=== PATIENT | female | born 1990 | race Caucasian/White ===

== ENCOUNTER 2017-02-09 06:36 | Emergency (ER) | payer BC, OTHER, SELFPAY ==
[2017-02-09 06:49] VITALS: BP 125/77
[2017-02-09] MEDS ORDERED: diphenhydrAMINE 50 MG/ML SDV IVPUSH ONE (07:20)
[2017-02-09] MEDS ORDERED: Metoclopramide 10 MG/2 ML SDV IVPUSH ONE (07:20)
--- NOTE | 2017-02-09 07:23 | EDM.PDOC ---
ED HPI GENERAL MEDICAL PROBLEM - General Chief Complaint: Headache Stated Complaint: HEADACHE Time Seen by Provider: 02/09/17 07:18 Source of Information: Reports: Patient History Limitations: Reports: No Limitations - History of Present Illness INITIAL COMMENTS - FREE TEXT/NARRATIVE: 26-year-old female presents to the ED with a right hemicranial headache particularly retro-orbital. She had a headache yesterday but it worsened overnight. Associated nausea without vomiting. She did eat and drink fairly well normally. Headaches are not real common for her. Headache is described as constant throbbing and pulsating in her right head. No recent head injuries. No signs of sinusitis or upper respiratory tract infection. Has not noticed any motor dysfunction Onset: Gradual Onset Date: 02/08/17 (had a headache most of yesterday but much worse this morning.) Duration: Hour(s): Location: Reports: Head Quality: Reports: Ache, Pressure Severity: Moderate (current pain is 7-8 out of 10.) Improves with: Reports: Rest Worsens with: Reports: Movement Context: Denies: Activity, Exercise, Lifting, Sick Contact, Trauma, Other Associated Symptoms: Reports: Nausea/Vomiting. 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: Neurological History: Reports: Migraines Social & Family History - Family History Family Medical History: Noncontributory - Tobacco Use Smoking Status *Q: Never Smoker - Caffeine Use Caffeine Use: Reports: None - Recreational Drug Use Recreational Drug Use: No - Living Situation & Occupation Living situation: Reports: Occupation: Employed ED ROS GENERAL - Review of Systems Review Of Systems: See Below Constitutional: Denies: Fever, Chills, Malaise, Weakness, Fatigue, Decreased Appetite, Weight Loss HEENT: Reports: No Symptoms, Eye Pain (right retro-orbital) Respiratory: Reports: No Symptoms ( pain pressure discomfort) Cardiovascular: Reports: No Symptoms Endocrine: Reports: No Symptoms GI/Abdominal: Reports: No Symptoms : Reports: No Symptoms Musculoskeletal: Reports: No Symptoms Skin: Reports: No Symptoms, Other Neurological: Reports: Headache. Denies: No Symptoms, Confusion, Dizziness, Numbness, Paresthesia, Pre-Existing Deficit, Seizure, Syncope, Tingling Psychiatric: Reports: No Symptoms, Other Immunologic: Reports: No Symptoms - Physical Exam Exam: See Below Exam Limited By: No Limitations General Appearance: Alert, WD/WN, No Apparent Distress Eye Exam: Bilateral Eye: Normal Inspection, PERRL Throat/Mouth: Normal Inspection, Normal Lips, Normal Oropharynx Head Exam: Atraumatic, Normocephalic Neck: Normal Inspection, Supple, Non-Tender, Full Range of Motion. No: Carotid Bruit Respiratory/Chest: No Respiratory Distress, Lungs Clear, Normal Breath Sounds, No Accessory Muscle Use Cardiovascular: Normal Peripheral Pulses, Regular Rate, Rhythm, No Edema, No Murmur GI/Abdominal: Normal Bowel Sounds, Soft, Non-Tender, No Organomegaly, No Distention Neuro Exam (Abbreviated): Alert, Oriented, CN II-XII Intact, Normal Cognition, Normal Reflexes, No Motor/Sensory Deficits Extremities: Normal Inspection, Normal Range of Motion, Non-Tender, No Pedal Edema, Normal Capillary Refill Psychiatric: Normal Affect, Normal Mood Skin Exam: Warm, Dry, Intact, Normal Color, No Rash Course - Vital Signs Last Recorded V/S: Last Vital Signs Temp 36.8 C 02/09/17 06:45 Pulse 91 02/09/17 06:45 Resp 18 02/09/17 06:45 BP 125/77 02/09/17 06:45 Pulse Ox 98 02/09/17 06:45 - Orders/Labs/Meds Orders: Active Orders 24 hr Category Date Time Status Dextrose 5%-0.9% NaCl [Dextrose 5%-Normal Saline] 1,000 Med 02/09/17 07:30 Active ml IV ASDIRECTED Ketorolac [Toradol] Med 02/09/17 07:30 Active 30 mg IVPUSH ONETIME Medication Orders Dextrose/Sodium Chloride (Dextrose 5%-Normal Saline) 1,000 mls @ 999 mls/hr IV ASDIRECTED RYAN Last Admin: 02/09/17 07:29 Dose: 999 mls/hr Ketorolac Tromethamine (Toradol) 30 mg IVPUSH ONETIME RYAN Last Admin: 02/09/17 07:30 Dose: 30 mg Meds: Medications Generic Name Dose Route Start Last Admin Trade Name Freq PRN Reason Stop Dose Admin Dextrose/Sodium Chloride 1,000 mls @ 999 mls/hr 02/09/17 07:30 02/09/17 07:29 Dextrose 5%-Normal Saline IV 999 mls/hr ASDIRECTED RYAN Administration Ketorolac Tromethamine 30 mg 02/09/17 07:30 02/09/17 07:30 Toradol IVPUSH 30 mg ONETIME RYAN Administration Discontinued Medications Generic Name Dose Route Start Last Admin Trade Name Freq PRN Reason Stop Dose Admin Diphenhydramine HCl 25 mg 02/09/17 07:20 02/09/17 07:30 Benadryl IVPUSH 02/09/17 07:21 25 mg ONETIME ONE Administration Metoclopramide HCl 7.5 mg 02/09/17 07:20 02/09/17 07:29 Reglan IVPUSH 02/09/17 07:21 7.5 mg ONETIME ONE Administration - Radiology Interpretation Free Text/Narrative:: 26-year-old female comes to the ED with a severe right hemicranial headache. She states when the worst headache she's experienced. No prone to headaches per se. Mild associated nausea without vomiting. Pain is pressure discomfort right hemicranial head and retro-orbital characteristic of migraine. No exam is otherwise completely normal. This includes rapid alternating movements and finger to nose assessments. Plan IV Toradol 30 mg IV with Benadryl 25 mg IV and Reglan 7.5 mg IV for headache relief. - Re-Assessments/Exams Free Text/Narrative Re-Assessment/Exam: 02/09/17 08:19patient reports she's feeling much improved. Headache is pretty well gone. She'll therefore be discharged to home to sleep for a couple of hours and then resume normal diet. Advised her to look for trigger factors in her diet over the last 12-24 hours and may have precipitated this severe headache. Departure - Departure Time of Disposition: 08:19 Disposition: Home, Self-Care 01 Condition: Fair Clinical Impression: Migraine - Discharge Information Referrals: PCP,None [Primary Care Provider] - Forms: ED Department Discharge Additional Instructions: evaluation the emergency room today in regards to development of a severe headache on the right hemicranial side of your head and behind her eye with associated nausea. This clinically as a migraine type headache. You're treated with intravenous fluids as well as Reglan Toradol and Benadryl to provide headache relief and nausea relief. Suggest home to sleep for a few hours and then resume normal diet. Look at dietary intake over the last 12-24 hours to see if he can identify a potential trigger for a bad headache as we discussed. Follow-up with personal physician if any further problems occur. - My Orders Last 24 Hours: My Active Orders 02/09/17 07:30 Dextrose 5%-0.9% NaCl [Dextrose 5%-Normal Saline] 1,000 ml IV ASDIRECTED Ketorolac [Toradol] 30 mg IVPUSH ONETIME - Assessment/Plan Last 24 Hours: My Active Orders 02/09/17 07:30 Dextrose 5%-0.9% NaCl [Dextrose 5%-Normal Saline] 1,000 ml IV ASDIRECTED Ketorolac [Toradol] 30 mg IVPUSH ONETIME
[2017-02-09] MEDS ORDERED: Dextrose 5%-0.9% NaCl 1,000 ML IV SCH (07:30)
[2017-02-09] MEDS ORDERED: Ketorolac 30 MG/ML SDV IVPUSH SCH (07:30)
== END 2017-02-09 09:00 | disposition home or self-care (01) ==
LOC: JD.ED 06:36
DX: G43.909 Migraine, unspecified, not intractable, without status migrainosus (principal); Z88.2 Allergy status to sulfonamides
CPT/HCPCS: 96361; 96374; 96375; 99284; J1200; J1885; J2765; J7042

== ENCOUNTER 2019-12-12 03:26 | Emergency (ER) | payer BC ==
[2019-12-12 03:39] VITALS: BP 139/82; PULSE 78
--- NOTE | 2019-12-12 04:39 | EDM.PDOC ---
ED HPI GENERAL MEDICAL PROBLEM - General Chief Complaint: Flank Pain Stated Complaint: SIDE PAIN Time Seen by Provider: 12/12/19 04:10 Source of Information: Reports: Patient History Limitations: Reports: No Limitations - History of Present Illness INITIAL COMMENTS - FREE TEXT/NARRATIVE: Is a 28-year-old female. Since yesterday she has been having pain in her right upper quadrant going into the right flank underneath her right ribs. She denies any cough denies any fever denies any straining. She has not been short of breath. She is a 4 para 3 aborta 0. She has had no urinary symptoms and no nausea vomiting or diarrhea. She denies any history of gallbladder problems. It seems like movement aggravates the pain more but it is always there and seems to be overly sharp since it started yesterday. She comes to the ER for evaluation. 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: Neurological History: Reports: Migraines Social & Family History - Family History Family Medical History: Noncontributory - Tobacco Use Smoking Status *Q: Never Smoker - Caffeine Use Caffeine Use: Reports: None - Recreational Drug Use Recreational Drug Use: No - Living Situation & Occupation Living situation: Reports: Occupation: Employed ED ROS GENERAL - Review of Systems Review Of Systems: See Below Constitutional: Denies: Fever, Chills HEENT: Reports: No Symptoms Respiratory: Denies: Shortness of Breath, Cough Cardiovascular: Reports: No Symptoms Endocrine: Reports: No Symptoms GI/Abdominal: Reports: Abdominal Pain. Denies: Diarrhea, Nausea, Vomiting : Reports: Flank Pain Musculoskeletal: Reports: No Symptoms Skin: Reports: No Symptoms Neurological: Reports: No Symptoms Psychiatric: Reports: No Symptoms ED EXAM, GI/ABD - Physical Exam Exam: See Below Exam Limited By: No Limitations General Appearance: Alert, WD/WN, No Apparent Distress Eyes: Bilateral: Normal Appearance Ears: Normal External Exam Throat/Mouth: Normal Voice, No Airway Compromise Head: Normocephalic Neck: Supple Respiratory/Chest: No Respiratory Distress, Lungs Clear, Normal Breath Sounds, Other (Patient of her right ribs does not reveal any particular tenderness or that sharp pain) Cardiovascular: Regular Rate, Rhythm, No Murmur GI/Abdominal Exam: Soft, Other (Tender in the right upper quadrant and palpation over the gallbladder causes the sharp pain to go into the right flank) Back Exam: Full Range of Motion Extremities: Normal Inspection, Normal Range of Motion Neurological: Alert, Oriented Psychiatric: Normal Affect, Normal Mood Skin Exam: Warm, Dry Course - Vital Signs Last Recorded V/S: Last Vital Signs Temp 97.2 F 12/12/19 03:36 Pulse 78 12/12/19 03:36 Resp 16 12/12/19 03:36 BP 139/82 12/12/19 03:36 Pulse Ox 99 12/12/19 03:36 - Orders/Labs/Meds Orders: Active Orders 24 hr Category Date Time Status Abdomen Ltd [US] Stat Exams 12/12/19 04:18 Taken Labs: Laboratory Tests 12/12/19 12/12/19 12/12/19 Range/Units 03:45 04:32 04:32 WBC 8.55 (3.98-10.04) K/mm3 RBC 4.06 (3.98-5.22) M/mm3 Hgb 12.5 D (11.2-15.7) gm/dl Hct 36.8 (34.1-44.9) % MCV 90.6 (79.4-94.8) fl MCH 30.8 (25.6-32.2) pg MCHC 34.0 (32.2-35.5) g/dl RDW Std Deviation 38.6 (36.4-46.3) fL Plt Count 270 (182-369) K/mm3 MPV 10.1 (9.4-12.3) fl Neut % (Auto) 66.3 (34.0-71.1) % Lymph % (Auto) 23.2 (19.3-51.7) % [place] % (Auto) 8.9 (4.7-12.5) % Eos % (Auto) 0.9 (0.7-5.8) Baso % (Auto) 0.5 (0.1-1.2) % Neut # (Auto) 5.67 (1.56-6.13) K/mm3 Lymph # (Auto) 1.98 (1.18-3.74) K/mm3 [place] # (Auto) 0.76 H (0.24-0.36) K/mm3 Eos # (Auto) 0.08 (0.04-0.36) K/mm3 Baso # (Auto) 0.04 (0.01-0.08) K/mm3 Sodium 137 (136-145) mEq/L Potassium 3.2 L (3.5-5.1) mEq/L Chloride 102 (98-107) mEq/L Carbon Dioxide 25 (21-32) mEq/L Anion Gap 13.2 (5-15) BUN 8 (7-18) mg/dL Creatinine 0.7 (0.55-1.02) mg/dL Est Cr Clr Drug Dosing 87.48 mL/min Estimated GFR (MDRD) > 60 (>60) mL/min BUN/Creatinine Ratio 11.4 L (14-18) Glucose 92 (74-106) mg/dL Calcium 8.8 (8.5-10.1) mg/dL Total Bilirubin 0.4 (0.2-1.0) mg/dL AST 15 (15-37) U/L ALT 30 (14-59) U/L Alkaline Phosphatase 50 (46-116) U/L Total Protein 6.7 (6.4-8.2) g/dl Albumin 3.4 (3.4-5.0) g/dl Globulin 3.3 gm/dL Albumin/Globulin Ratio 1.0 (1-2) Lipase 104 (73-393) U/L Urine Color Yellow (Yellow) Urine Appearance Cloudy H (Clear) Urine pH 7.5 (5.0-8.0) Ur Specific [place] 1.020 (1.005-1.030) Urine Protein Negative (Negative) Urine Glucose (UA) Negative (Negative) Urine Ketones Negative (Negative) Urine Occult Blood Negative (Negative) Urine Nitrite Negative (Negative) Urine Bilirubin Negative (Negative) Urine Urobilinogen 1.0 (0.2-1.0) Ur Leukocyte Esterase Negative (Negative) Urine RBC 0-5 (0-5) /hpf Urine WBC 0-5 (0-5) /hpf Ur Squamous Epith Cells 5-10 H (0-5) /hpf Amorphous Sediment Many H (NOT SEEN) /hpf Urine Bacteria Few (FEW) /hpf Urine Mucus Few (FEW) /hpf - Radiology Interpretation Free Text/Narrative:: Ultrasound of the abdomen shows cholelithiasis with a positive Cadet sign. - Re-Assessments/Exams Free Text/Narrative Re-Assessment/Exam: 12/12/19 06:01 Spoke to the patient regarding her ultrasound results of blood results. Departure - Departure Time of Disposition: 06:01 Disposition: Home, Self-Care 01 Condition: Fair Clinical Impression: Cholelithiasis affecting in first trimester, antepartum, Nausea - Discharge Information *PRESCRIPTION DRUG MONITORING PROGRAM REVIEWED*: Not Applicable *COPY OF PRESCRIPTION DRUG MONITORING REPORT IN PATIENT ALLAN: Not Applicable Prescriptions: Hydrocodone/Acetaminophen [Hydrocodone-Acetamin 5-325 mg] 1 each PO Q6H PRN #20 tablet PRN Reason: Pain Ondansetron [Zofran ODT] 4 mg PO Q6H PRN #20 tab.dis PRN Reason: Nausea Instructions: Cholelithiasis, Nausea, Adult Forms: ED Department Discharge Additional Instructions: Take the medication for pain and nausea as needed, follow-up with your OB doctor to let them know that you have gallstones to see what they want to do, in the meantime no foods that are greasy, oily or fried, if there is marked increase with your symptoms return to the ER for reevaluation Sepsis Event Note (ED) - Evaluation Sepsis Screening Result: No Definite Risk - Focused Exam Vital Signs: Vital Signs Temp Pulse Resp BP Pulse Ox 12/12/19 03:36 97.2 F 78 16 139/82 99 - My Orders Last 24 Hours: My Active Orders 12/12/19 04:18 Abdomen Ltd [US] Stat - Assessment/Plan Last 24 Hours: My Active Orders 12/12/19 04:18 Abdomen Ltd [US] Stat
--- NOTE | 2019-12-12 09:11 | US ---
Limited abdominal ultrasound: Multiple real-time images of the upper right abdomen were obtained. Comparison: No prior abdominal imaging is available. Multiple gallstones seen within the gallbladder. No gallbladder wall thickening or biliary duct dilatation is seen. Liver is slightly echogenic suggesting fatty infiltration. Pancreas appears within normal limits. Right kidney shows no hydronephrosis or mass. Collecting system of the right kidney is slightly dilated most likely incidental and patient has no symptoms of obstructive ureteral calculi. Right kidney has a length of 9.3 cm. Inferior vena cava is patent. Main portal vein shows normal hepatopedal flow. Impression: 1. Probable fatty infiltration within the liver. 2. Multiple gallstones with no gallbladder wall thickening or biliary duct dilatation. 3. Slightly prominent collecting system of the right kidney likely incidental if patient has no symptoms of obstructive ureteral stone. If any further questions remain, follow-up study could be obtained to see if this finding increases in size. 4. No additional abnormality is appreciated. Diagnostic code #3 This report was dictated in MDT I agree with preliminary report from meredith, finalized on 12/12/19, 6:50 AM Central Daylight Time
== END 2019-12-12 06:13 | disposition home or self-care (01) ==
LOC: JD.ED 03:26
DX: O99.611 Diseases of the digestive system complicating pregnancy, first trimester (principal); K80.20 Calculus of gallbladder without cholecystitis without obstruction; Z88.2 Allergy status to sulfonamides
CPT/HCPCS: 36415; 76705; 76705-26; 80053; 81001; 83690; 85025; 99283; 99284-25

== ENCOUNTER 2020-07-13 03:57 | Inpatient (IN) | payer MEDICAID ==
[2020-07-13] MEDS ORDERED: Nalbuphine 10 MG/1 ML Vial IVPUSH PRN (04:33)
[2020-07-13] MEDS ORDERED: Lidocaine 1% 50 ML MDV INJECT ONE (04:33)
[2020-07-13] MEDS ORDERED: Ondansetron 4 MG/2 ML SDV IVPUSH PRN (04:33)
[2020-07-13] MEDS ORDERED: Calcium Carbonate 500 MG Tab.Chew PO PRN (04:33)
[2020-07-13] MEDS ORDERED: Acetaminophen 325 MG Tab PO PRN ×2 (04:33→08:54)
[2020-07-13] MEDS ORDERED: Sodium Chloride 0.9% 10 ML Syringe FLUSH PRN (04:33)
[2020-07-13] MEDS ORDERED: Oxytocin/Lactated Ringers 10 UNIT/1,000 ML BAG IV SCH ×2 (04:45)
[2020-07-13] MEDS: Lactated Ringers 1,000 ML IV SCH ×2 (05:43→06:54)
[2020-07-13] MEDS ORDERED: Lidocaine 1% 50 ML MDV ONE (06:34)
--- NOTE | 2020-07-13 07:07 | PCM.LDHP ---
L&D History of Present Illness - General Date of Service: 07/13/20 Admit Problem/Dx: Patient Status Order with Admit Dx/Problem 07/13/20 04:09 Patient Status [ADT] Routine 07/13/20 04:34 Patient Status [ADT] Routine Admission Diagnosis/Problem Admission Diagnosis/Problem Source of Information: Patient History Limitations: Reports: No Limitations - History of Present Illness Introduction:: Patient is a 29 y/o who presents at 39 3/7 wks in labor. Contractions started last PM, but picked up early this AM. 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): Neurological History: Reports: Migraines - Past Surgical History Other Surgical History Comment: No past surgical history Social & Family History - Family History Family Medical History: No Pertinent Family History - Tobacco Use Tobacco Use Status *Q: Never Tobacco User Second Hand Smoke Exposure: No - Caffeine Use Caffeine Use: Reports: None - Alcohol Use Alcohol Use History: No - Recreational Drug Use Recreational Drug Use: No - Living Situation & Occupation Living situation: Reports: Occupation: Employed H&P Review of Systems - Review of Systems: Review Of Systems: See Below General: Reports: No Symptoms Pulmonary: Reports: No Symptoms Cardiovascular: Reports: No Symptoms Gastrointestinal: Reports: Abdominal Pain Genitourinary: Reports: No Symptoms Musculoskeletal: Reports: No Symptoms Psychiatric: Reports: No Symptoms Neurological: Reports: No Symptoms L&D Exam - Exam Exam: See Below - Vital Signs Vital Signs: Last Vital Signs Temp 36.9 C 07/13/20 04:34 Pulse 101 H 07/13/20 04:34 Resp 14 07/13/20 04:34 BP 125/83 07/13/20 04:34 Pulse Ox 100 07/13/20 04:34 Weight: 77.7 kg - OB Specific Contraction Intensity: Moderate to Strong Movement: Active Heart Tones: Present Heart Tones per Min: 155 Heart Rate (FHR) Variability: Moderate (6-25 bmp) Presentation: Vertex - Mcgill Score Mcgill Score Cervix Position: Anterior Mcgill Score Consistency: Soft Mcgill Score Effacement: >80% Mcgill Score Dilation: > 5 cm Mcgill Score Infant's Station: -2 Mcgill Score Total: 11 - Exam General: Alert, Oriented, Cooperative Lungs: Clear to Auscultation, Normal Respiratory Effort Cardiovascular: Regular Rate, Regular Rhythm GI/Abdominal Exam: Soft, Non-Tender Genitourinary: Normal external exam Extremities: Normal Inspection Skin: Warm, Dry, Intact - Patient Data Lab Results Last 24 hrs: Laboratory Results - last 24 hr 07/13/20 07/13/20 Range/Units 04:40 04:58 WBC 14.74 H (3.98-10.04) K/mm3 RBC 4.20 (3.98-5.22) M/mm3 Hgb 12.4 (11.2-15.7) gm/dl Hct 37.7 (34.1-44.9) % MCV 89.8 (79.4-94.8) fl MCH 29.5 (25.6-32.2) pg MCHC 32.9 (32.2-35.5) g/dl RDW Std Deviation 45.4 (36.4-46.3) fL Plt Count 240 (182-369) K/mm3 MPV 10.4 (9.4-12.3) fl Neut % (Auto) 73.8 H (34.0-71.1) % Lymph % (Auto) 14.0 L (19.3-51.7) % [place] % (Auto) 9.8 (4.7-12.5) % Eos % (Auto) 0.5 L (0.7-5.8) Baso % (Auto) 0.3 (0.1-1.2) % Neut # (Auto) 10.86 H (1.56-6.13) K/mm3 Lymph # (Auto) 2.07 (1.18-3.74) K/mm3 [place] # (Auto) 1.45 H (0.24-0.36) K/mm3 Eos # (Auto) 0.08 (0.04-0.36) K/mm3 Baso # (Auto) 0.04 (0.01-0.08) K/mm3 Manual Slide Review Abnormal smear SARS-CoV-2 RNA (DESMOND) Negative (NEGATIVE) Result Diagrams: 07/13/20 04:58 - Problem List (1) 39 weeks gestation of SNOMED Code(s): 67243756 ICD Code: Z3A.39 - 39 WEEKS GESTATION OF Status: Acute Current Visit: Yes (2) Normal labor SNOMED Code(s): 43098950 ICD Code: O80 - ENCOUNTER FOR FULL-TERM UNCOMPLICATED DELIVERY; Z37.9 - OUTCOME OF DELIVERY, UNSPECIFIED Status: Acute Current Visit: No Problem List Initiated/Reviewed/Updated: Yes Orders Last 24hrs: Active Orders 24 hr Category Date Time Status Patient Status [ADT] Routine ADT 07/13/20 04:34 Active Activity as Tolerated [RC] PFP Care 07/13/20 04:34 Active Communication Order [RC] ASDIRECTED Care 07/13/20 04:34 Active Heart Tones [RC] ASDIRECTED Care 07/13/20 04:34 Active Notify Provider [RC] PFP Care 07/13/20 04:34 Active Notify Provider [RC] PRN Care 07/13/20 04:34 Active Peripheral IV Care [RC] . DIRECTED Care 07/13/20 04:34 Active Vital Signs [RC] PER UNIT ROUTINE Care 07/13/20 04:34 Active Regular Diet [DIET] Diet 07/13/20 Breakfast Active RAPID PLASMA REAGIN,RPR [CHEM] Routine Lab 07/13/20 04:34 Ordered Acetaminophen [TylenoL] Med 07/13/20 04:33 Active 650 mg PO Q4H PRN Calcium Carbonate [Tums] Med 07/13/20 04:33 Active 1,000 mg PO Q2H PRN Lactated Ringers [Ringers, Lactated] 1,000 ml Med 07/13/20 04:45 Active IV ASDIRECTED Nalbuphine [Nubain] Med 07/13/20 04:33 Active 10 mg IVPUSH Q2H PRN Ondansetron [Zofran] Med 07/13/20 04:33 Active 4 mg IVPUSH Q4H PRN Oxytocin/Lactated Ringers [Pitocin in LR 10 Units/1,000 Med 07/13/20 04:45 Active ML] 10 unit in 1,000 ml IV .CONTINUOUS Oxytocin/Lactated Ringers [Pitocin in LR 10 Units/1,000 Med 07/13/20 04:45 Active ML] 10 unit in 1,000 ml IV TITRATE Sodium Chloride 0.9% [Saline Flush] Med 07/13/20 04:33 Active 10 ml FLUSH ASDIRECTED PRN Electronic Heart Tones Ext w TOCO [WOMSER] Oth 07/13/20 04:34 Ordered Routine Electronic Heart Tones Internal [WOMSER] Per Unit Oth 07/13/20 04:34 Ordered Routine Peripheral IV Insertion Adult [OM.PC] Routine Oth 07/13/20 04:34 Ordered Resuscitation Status Routine Resus Stat 07/13/20 04:33 Ordered Assessment/Plan Comment:: * Labs done * GBS negative * AROM done * Anticipate
--- NOTE | 2020-07-13 07:39 | PCM.DEL ---
L & D Note - General Info Date of Service: 07/13/20 - Delivery Note Labor: Spontaneous Delivery Outcome: Livebirth Delivery Mode: Spontaneous Presentation: Left Occiput Anterior (CHARY) Nuchal Cord: Present (x2) Anesthesia Type: None Amniotic Fluid Description: Clear Episiotomy Type: None Laceration: 1st Degree (hemostatic and so not repaired ) Placenta: Intact, Spontaneous Cord: 3 Vessels Estimated Blood Loss: 100 : Suctioned, Bulb Syringe, Stimulated, Warmed, [place] Used, Warmer Used Delivery Comments (Free Text/Narrative):: Patient found to be complete while in hands and knees. With maternal pushing effort head delivered from CHARY presentation. Nuchal cord present, but tight and so not reduced. With gentle upward traction shoulders and body delivered. placed on bed. Nuchal cords reduced. Cord clamped and cut. Baby taken to warmer for assessment. Cord blood obtained. Patient moved to lithotomy position. Placenta expelled. Inspection of perineum showed a 1st degree laceration which was hemostatic and so not repaired - General Info Date of Service: 07/13/20 - Patient Data Vitals - Most Recent: Last Vital Signs Temp 36.9 C 07/13/20 04:34 Pulse 101 H 07/13/20 04:34 Resp 14 07/13/20 04:34 BP 125/83 07/13/20 04:34 Pulse Ox 100 07/13/20 04:34 Weight - Most Recent: 77.7 kg - Problem List & Annotations (1) 39 weeks gestation of SNOMED Code(s): 99777247 Code(s): Z3A.39 - 39 WEEKS GESTATION OF Status: Acute Current Visit: Yes (2) Normal labor SNOMED Code(s): 38795725 Code(s): O80 - ENCOUNTER FOR FULL-TERM UNCOMPLICATED DELIVERY; Z37.9 - OUTCOME OF DELIVERY, UNSPECIFIED Status: Acute Current Visit: No (3) Vaginal delivery SNOMED Code(s): 982808802 Code(s): O80 - ENCOUNTER FOR FULL-TERM UNCOMPLICATED DELIVERY Status: Acute Current Visit: No - Problem List Review Problem List Initiated/Reviewed/Updated: Yes - My Orders Last 24 Hours: My Active Orders 07/13/20 04:33 Acetaminophen [TylenoL] 650 mg PO Q4H PRN Calcium Carbonate [Tums] 1,000 mg PO Q2H PRN Nalbuphine [Nubain] 10 mg IVPUSH Q2H PRN Ondansetron [Zofran] 4 mg IVPUSH Q4H PRN Sodium Chloride 0.9% [Saline Flush] 10 ml FLUSH ASDIRECTED PRN Resuscitation Status Routine 07/13/20 04:34 Patient Status [ADT] Routine Activity as Tolerated [RC] PFP Communication Order [RC] ASDIRECTED Heart Tones [RC] ASDIRECTED Notify Provider [RC] PFP Notify Provider [RC] PRN Peripheral IV Care [RC] . DIRECTED Vital Signs [RC] PER UNIT ROUTINE RAPID PLASMA REAGIN,RPR [CHEM] Routine Electronic Heart Tones Ext w TOCO [WOMSER] Routine Electronic Heart Tones Internal [WOMSER] Per Unit Routine Peripheral IV Insertion Adult [OM.PC] Routine 07/13/20 04:45 Lactated Ringers [Ringers, Lactated] 1,000 ml IV ASDIRECTED Oxytocin/Lactated Ringers [Pitocin in LR 10 Units/1,000 ML] 10 unit in 1,000 ml IV .CONTINUOUS Oxytocin/Lactated Ringers [Pitocin in LR 10 Units/1,000 ML] 10 unit in 1,000 ml IV TITRATE 07/13/20 Breakfast Regular Diet [DIET] - Assessment Assessment:: PPD#0 - Plan Plan:: * Routine cares * Breast feeding * Discharge home in 1-2 days
[2020-07-13] MEDS ORDERED: Docusate Sodium 100 MG Cap PO PRN (08:54)
[2020-07-13] MEDS ORDERED: Benzocaine/Menthol 20%-0.5% Spray 56 GM Canister TOP PRN (08:54)
[2020-07-13] MEDS ORDERED: Witch Hazel Medicated Pads 40/Jar TOP PRN (08:54)
[2020-07-13] MEDS: Ibuprofen 600 MG Tab PO PRN (12:13)
[2020-07-14] MEDS: Ibuprofen 600 MG Tab PO PRN (04:11)
--- NOTE | 2020-07-14 06:57 | PCM.DCSUM1 ---
Discharge Summary - Discharge Data Discharge Date: 07/14/20 Discharge Disposition: Home, Self-Care 01 Condition: Good - Referral to Home Health Primary Care Physician: Marily Esparza MD - Discharge Diagnosis/Problem(s) (1) 39 weeks gestation of SNOMED Code(s): 99480227 ICD Code: Z3A.39 - 39 WEEKS GESTATION OF Status: Acute Current Visit: Yes (2) Normal labor SNOMED Code(s): 16249995 ICD Code: O80 - ENCOUNTER FOR FULL-TERM UNCOMPLICATED DELIVERY; Z37.9 - OUTCOME OF DELIVERY, UNSPECIFIED Status: Acute Current Visit: No (3) Vaginal delivery SNOMED Code(s): 401293125 ICD Code: O80 - ENCOUNTER FOR FULL-TERM UNCOMPLICATED DELIVERY Status: Acute Current Visit: No - Patient Summary/Data Complications: None Consults: None Recommended Follow-up Testing/Procedures: Follow up in 3 weeks for check Hospital Course: 29 y/o at 39 3/7 wks presented in labor. Progressed well to complete di lation and underwent an uncomplicated . See delivery note. she did well and was discharged home on PPD#1 - Patient Instructions Diet: Regular Diet as Tolerated Activity: As Tolerated Activity, Other: Pelvic rest for 6 weeks Driving: May Drive Today Showering/Bathing: May Shower Showering/Bathing, Other: May Bathe Notify Provider of: Fever, Increased Pain, Swelling and Redness, Drainage, Christoph sea and/or Vomiting - Discharge Plan *PRESCRIPTION DRUG MONITORING PROGRAM REVIEWED*: No *COPY OF PRESCRIPTION DRUG MONITORING REPORT IN PATIENT ALLAN: No Home Medications: Home Meds Vits #93/Iron Fum/FA [ Formula Tablet] 1 each PO DAILY 06/05/20 [History] Docusate Sodium [Colace] 100 mg PO BID PRN cap 07/14/20 [Rx] Ibuprofen [Motrin] 600 mg PO Q6H PRN tablet 07/14/20 [Rx] Patient Handouts: Care After Vaginal Delivery Referrals: Marily Esparza MD [Primary Care Provider] - - Discharge Summary/Plan Comment DC Time >30 min.: No - Patient Data Vitals - Most Recent: Last Vital Signs Temp 36.3 C 07/14/20 03:48 Pulse 93 07/14/20 03:48 Resp 16 07/14/20 03:48 BP 124/68 07/14/20 03:48 Pulse Ox 97 07/14/20 03:48 Weight - Most Recent: 77.7 kg I&O - Last 24 hours: Intake & Output 07/13/20 07/13/20 07/14/20 14:59 22:59 06:59 Intake Total 2820 Balance 2820
--- NOTE | 2020-07-14 06:57 | PCM.PNPP ---
- General Info Date of Service: 07/14/20 Functional Status: Reports: Pain Controlled, Tolerating Diet, Ambulating, Urinating - Review of Systems General: Reports: No Symptoms Pulmonary: Reports: No Symptoms Cardiovascular: Reports: No Symptoms Gastrointestinal: Reports: Abdominal Pain (some intense cramping) Genitourinary: Reports: No Symptoms Musculoskeletal: Reports: No Symptoms Neurological: Reports: No Symptoms - Patient Data Vital Signs - Most Recent: Last Vital Signs Temp 36.3 C 07/14/20 03:48 Pulse 93 07/14/20 03:48 Resp 16 07/14/20 03:48 BP 124/68 07/14/20 03:48 Pulse Ox 97 07/14/20 03:48 Weight - Most Recent: 77.7 kg I&O - Last 24 Hours: Intake & Output 07/13/20 07/13/20 07/14/20 14:59 22:59 06:59 Intake Total 2820 Balance 2820 - Infant Interaction Infant Disposition, : in Room with Family Interaction: Holding Infant Infant Feeding: Breastfed ; Nursed Well Support Person: - Recovery Exam Fundal Tone: Firm Fundal Level: At Umbilicus Fundal Placement: Midline Lochia Amount: Small Lochia Color: Rubra/Red Perineum Description: Intact, Minimal Bruising/Swelling Episiotomy/Laceration: None Bladder Status: Voiding Urinary Elimination: Voided - Exam General: Alert, Oriented, Cooperative GI/Abdominal Exam: Soft, Non-Tender Extremities: Normal Inspection Skin: Warm, Dry, Intact - Problem List & Annotations (1) 39 weeks gestation of SNOMED Code(s): 91938225 Code(s): Z3A.39 - 39 WEEKS GESTATION OF Status: Acute Current Visit: Yes (2) Normal labor SNOMED Code(s): 40398607 Code(s): O80 - ENCOUNTER FOR FULL-TERM UNCOMPLICATED DELIVERY; Z37.9 - OUTCOME OF DELIVERY, UNSPECIFIED Status: Acute Current Visit: No (3) Vaginal delivery SNOMED Code(s): 265715613 Code(s): O80 - ENCOUNTER FOR FULL-TERM UNCOMPLICATED DELIVERY Status: Acute Current Visit: No - Problem List Review Problem List Initiated/Reviewed/Updated: Yes - My Orders Last 24 Hours: My Active Orders 07/13/20 Breakfast Regular Diet [DIET] 07/13/20 08:54 Acetaminophen [TylenoL] 650 mg PO Q4H PRN Benzocaine/Menthol [Dermoplast Pain Relief [place]] See Dose Instructions TOP ASDIRECTED PRN Docusate Sodium [Colace] 100 mg PO BID PRN Ibuprofen [Motrin] 600 mg PO Q6H PRN witch [place] [Tucks] 1 pad TOP ASDIRECTED PRN Heat Therapy [OM.PC] PRN 07/13/20 08:54 Activity as Tolerated [RC] PER UNIT ROUTINE Vital Signs [RC] ,,, Assess Lochia [WOMSER] Per Unit Routine Assess Uterine Involution [WOMSER] Per Unit Routine Breast Pump [WOMSER] Per Unit Routine Ice Therapy [OM.PC] Per Unit Routine Perineal Care [OM.PC] Per Unit Routine Peripheral IV Discontinue [OM.PC] Routine Sitz Bath [OM.PC] Per Unit Routine 07/14/20 06:56 Ready for Discharge [RC] PER UNIT ROUTINE 07/14/20 08:54 Heat Therapy [OM.PC] PRN - Assessment Assessment:: PPD#1 - Plan Plan:: * Routine cares * Breast feeding * Discharge home today
[2020-07-14 08:46] VITALS: BP 123/75; PULSE 82
== END 2020-07-14 11:40 | disposition home or self-care (01) | DRG 807 ==
LOC: JD.OB 03:57 → JD.OBCHECK 03:57 → JD.OB 05:28 → JD.OBCHECK 05:28 → OBSVTOIN 07:23 → JD.OB 07:24
PROVIDERS: ADMIT Obstetrics & Gynecology; ATTEND Obstetrics & Gynecology
PROC: 10E0XZZ Delivery of Products of Conception, External Approach (ICD-10-PCS; principal; 2020-07-13)
PROC: 10907ZC Drainage of Amniotic Fluid, Therapeutic from Products of Conception, Via Natural or Artificial Opening (ICD-10-PCS; 2020-07-13)
DX: O69.1XX0 Labor and delivery complicated by cord around neck, with compression, not applicable or unspecified (principal); Z37.0 Single live birth; Z3A.39 39 weeks gestation of pregnancy; Z20.822 Contact with and (suspected) exposure to COVID-19; O70.0 First degree perineal laceration during delivery
CPT/HCPCS: 36415; 59025; 59409; 85025; A9270-GY; J2300; J2590; J7120; U0002

== ENCOUNTER 2022-12-09 06:48 | Inpatient (IN) | payer BC ==
[~2022-12-09 06:48] MED LIST: Bupivacaine 0.25% 10 ML SDV ONE; Lidocaine 1% 10 ML MDV ONE
[2022-12-09] MEDS ORDERED: Sodium Chloride 0.9% 10 ML Syringe FLUSH PRN (07:11)
[2022-12-09] MEDS ORDERED: Nalbuphine 10 MG/0.5 ML Syringe IVPUSH PRN (07:11)
[2022-12-09] MEDS ORDERED: Ondansetron 4 MG/2 ML SDV IVPUSH PRN (07:11)
[2022-12-09] MEDS ORDERED: Oxytocin/Lactated Ringers 10 UNIT/1,000 ML BAG IV SCH ×2 (07:15)
[2022-12-09] MEDS ORDERED: fentaNYL 100 MCG/2 ML SDV EPIDUR PRN (07:31)
[2022-12-09] MEDS ORDERED: ePHEDrine 50 MG/ML SDV IVPUSH PRN (07:31)
[2022-12-09] MEDS ORDERED: Bupivacaine/fentaNYL/NS 100 ML Bag EPIDUR PRN (07:31)
[2022-12-09] MEDS ORDERED: diphenhydrAMINE 50 MG/ML SDV IVPUSH PRN (07:31)
[2022-12-09 07:34] LABS: HEMATOCRIT 34.7 % (34.1-44.9); HEMOGLOBIN 11.2 gm/dl (11.2-15.7); MEAN CORPUSCULAR HEMOGLOBIN 28.1 pg (25.6-32.2); MEAN CORPUSCULAR HGB CONC 32.3 g/dl (32.2-35.5); MEAN CORPUSCULAR VOLUME 87.2 fl (79.4-94.8); MEAN PLATELET VOLUME 10.7 fl (9.4-12.3); PLATELET COUNT,PLT 231 K/mm3 (182-369); RED BLOOD CELL COUNT 3.98 M/mm3 (3.98-5.22); WHITE BLOOD CELL COUNT,WBC 9.05 K/mm3 (3.98-10.04)
[2022-12-09] MEDS ORDERED: Metoclopramide 10 MG/2 ML SDV IVPUSH ONE (08:19)
[2022-12-09] MEDS ORDERED: Citric Acid/Sodium Citrate Solution 30 ML Cup PO ONE (08:19)
[2022-12-09] MEDS ORDERED: ceFAZolin 2 GM in Sodium Chloride 0.9% 50 ML IV ONE (08:19)
[2022-12-09] MEDS: Lactated Ringers 1,000 ML IV SCH ×2 (08:25→10:50)
[2022-12-09] MEDS ORDERED: Azithromycin 500 MG in Sodium Chloride 0.9% 250 ML IV ONE (08:42)
[2022-12-09] MEDS ORDERED: Sodium Chloride 0.9% 10 ML Syringe FLUSH SCH (09:00)
[2022-12-09] MEDS ORDERED: Benzocaine/Menthol 20%-0.5% Spray 78 GM Cannister TOP PRN (14:36)
[2022-12-09] MEDS ORDERED: Docusate Sodium 100 MG Cap PO PRN (14:36)
[2022-12-09] MEDS ORDERED: Witch Hazel Medicated Pads 40/Jar TOP PRN (14:36)
[2022-12-09] MEDS: Acetaminophen 325 MG Tab PO PRN (15:43)
[2022-12-09] MEDS: Ibuprofen 600 MG Tab PO PRN (15:44)
[2022-12-10] MEDS: Acetaminophen 325 MG Tab PO PRN ×2 (00:18→08:28)
[2022-12-10] MEDS: Ibuprofen 600 MG Tab PO PRN ×2 (00:18→08:27)
[2022-12-10 13:12] VITALS: BP 124/69; PULSE 75
== END 2022-12-10 12:59 | disposition home or self-care (01) | DRG 560 ==
LOC: JD.OB 06:48 → OBSVTOIN 12:26 → JD.OB 12:27
PROVIDERS: ADMIT Obstetrics & Gynecology; ATTEND Obstetrics & Gynecology
PROC: 10E0XZZ Delivery of Products of Conception, External Approach (ICD-10-PCS; principal; 2022-12-09)
PROC: 10907ZC Drainage of Amniotic Fluid, Therapeutic from Products of Conception, Via Natural or Artificial Opening (ICD-10-PCS; 2022-12-09)
PROC: 3E033VJ Introduction of Other Hormone into Peripheral Vein, Percutaneous Approach (ICD-10-PCS; 2022-12-09)
PROC: 0KQM0ZZ Repair Perineum Muscle, Open Approach (ICD-10-PCS; 2022-12-09)
PROC: 3E0R3BZ Introduction of Anesthetic Agent into Spinal Canal, Percutaneous Approach (ICD-10-PCS; 2022-12-09)
PROC: 00HU33Z Insertion of Infusion Device into Spinal Canal, Percutaneous Approach (ICD-10-PCS; 2022-12-09)
DX: O36.63X0 Maternal care for excessive fetal growth, third trimester, not applicable or unspecified (principal); O40.3XX0 Polyhydramnios, third trimester, not applicable or unspecified; O32.0XX0 Maternal care for unstable lie, not applicable or unspecified; O70.1 Second degree perineal laceration during delivery; Z37.0 Single live birth; Z3A.39 39 weeks gestation of pregnancy; Z79.899 Other long term (current) drug therapy; Z88.2 Allergy status to sulfonamides
CPT/HCPCS: 36415; 51701; 59025; 59409; 85027; 86592; 86850; 86900; 86901; A9270-GY; J2300; J2590; J3010; J3490; J7120

== ENCOUNTER 2024-12-06 02:53 | Inpatient (IN) | payer BC, MEDICAID ==
[2024-12-06] MEDS ORDERED: Sodium Chloride 0.9% 10 ML Syringe FLUSH PRN (03:18)
[2024-12-06] MEDS ORDERED: Ondansetron 4 MG/2 ML SDV IVPUSH PRN (03:18)
[2024-12-06] MEDS ORDERED: Oxytocin/0.9 % Sodium Chloride 30 UNIT/500 ML BAG IV SCH (03:30)
[2024-12-06 03:35] LABS: BASOPHILS ABSOLUTE AUTO 0.1 K/mm3 (0.0-0.2); BASOPHILS PERCENT AUTO 0.4 % (0.0-1.0); EOSINOPHILS ABSOLUTE AUTO 0.1 K/mm3 (0.0-0.4); EOSINOPHILS PERCENT AUTO 1.1 % (0.0-6.0); IMMATURE GRAN ABSOLUTE AUTO 0.15 K/mm3 (0.00-0.05); IMMATURE GRAN PERCENT AUTO 1.2 % (0.0-0.4); LYMPHOCYTES ABSOLUTE AUTO 2.0 K/mm3 (1.0-4.8); LYMPHOCYTES PERCENT AUTO 15.8 % (24.0-44.0); MEAN PLATELET VOLUME 11.1 fl (9.4-12.3); MONOCYTES ABSOLUTE AUTO 1.4 K/mm3 (0.0-0.8); MONOCYTES PERCENT AUTO 10.9 % (0.0-8.0); NEUTROPHILS ABSOLUTE AUTO 8.9 K/mm3 (1.8-7.7); NEUTROPHILS PERCENT AUTO 70.6 % (41.0-71.0); NRBC ABSOLUTE 0.00 (0.00-0.02); NRBC PERCENT 0.0 % (0.0-0.2); PLATELET COUNT,PLT 222 K/mm3 (150-400); RED BLOOD CELL COUNT 4.48 M/mm3 (4.10-5.30); WHITE BLOOD CELL COUNT,WBC 12.56 K/mm3 (3.9-11.3)
[2024-12-06] MEDS: Lactated Ringers 1,000 ML IV SCH (04:23)
[2024-12-06] MEDS: Nalbuphine 10 MG/1 ML Vial IVPUSH PRN (04:58)
[2024-12-06] MEDS ORDERED: Magnesium Hydroxide 400 MG/5 ML Susp 30 ML Cup PO PRN (08:53)
[2024-12-06] MEDS ORDERED: Sodium Chloride 0.9% 10 ML Syringe FLUSH SCH (09:00)
[2024-12-06] MEDS: Witch Hazel Medicated Pads 40/Jar TOP PRN (09:46)
[2024-12-06] MEDS: Benzocaine/Menthol 20%-0.5% Spray 78 GM Cannister TOP PRN (09:46)
[2024-12-06] MEDS: Prenatal Multivitamin with Calcium/Folic Acid/Iron Tab PO SCH (10:53)
[2024-12-06] MEDS: Oxytocin/0.9 % Sodium Chloride 30 UNIT/500 ML BAG IV SCH (12:07)
[2024-12-08 08:51] VITALS: BP 125/74; PULSE 92
== END 2024-12-08 09:50 | disposition home or self-care (01) | DRG 560 ==
LOC: JD.OBCHECK 02:53 → JD.OB 02:56 → JD.OBCHECK 03:18 → JD.OB 03:18 → OBSVTOIN 07:11 → JD.OB 07:12 → JD.MS 12-07 16:19 → JD.OB 12-07 16:19
PROVIDERS: ADMIT Obstetrics & Gynecology; ATTEND Obstetrics & Gynecology
PROC: 3E033VJ Introduction of Other Hormone into Peripheral Vein, Percutaneous Approach (ICD-10-PCS; principal; 2024-12-06)
PROC: 0KQM0ZZ Repair Perineum Muscle, Open Approach (ICD-10-PCS; principal; 2024-12-06)
PROC: 10E0XZZ Delivery of Products of Conception, External Approach (ICD-10-PCS; principal; 2024-12-06)
DX: O99.824 Streptococcus B carrier state complicating childbirth (principal); Z3A.39 39 weeks gestation of pregnancy; Z37.0 Single live birth; O70.1 Second degree perineal laceration during delivery
CPT/HCPCS: 36415; 59025; 59409; 85025; 86592; 86850; 86900; 86901; A9270-GY; J0290; J2003; J2300; J7120; J7999